=== PATIENT | female | born 1955 | race Caucasian/White ===

== ENCOUNTER 2020-04-01 22:44 | Inpatient (IN) | payer OTHER ==
[~2020-04-01] VITALS: Ht 160 cm; Wt 85.7 kg
--- NOTE | 2020-04-01 22:54 | NUR ---
RUPRETO FROM HOME C/O WEAKNESS/DIZZINESS +NAUSEA TO ER BED 4 AWAITING MD STEWARD
[2020-04-01] MEDS ORDERED: ONDANSETRON HCL/PF 4 MG/2 ML VIAL IV ONE (23:00)
[2020-04-01] MEDS ORDERED: IV NS 0.9% 1,000 ML BAG IV ONE (23:00)
[2020-04-01] MEDS ORDERED: ONDANSETRON HCL/PF 4 MG/2 ML VIAL ONE (23:07)
--- NOTE | 2020-04-01 23:27 | NUR ---
TECH AT BEDSIDE FOR XRAY
--- NOTE | 2020-04-01 23:34 | NUR ---
PT TAKEN TO CT
[2020-04-01 23:45] LABS: BASOPHILS # (AUTO) 0.1 /CMM (0.0-0.2); BASOPHILS % (AUTO) 0.4 % (0.0-2.0); EOSINOPHILS % (AUTO) 1.3 % (0.0-6.0); HEMATOCRIT 44 % (33-45); HEMOGLOBIN 14.1 g/dL (11.5-14.8); LYMPHOCYTES # (AUTO) 3.5 /CMM (0.8-4.8); LYMPHOCYTES % (AUTO) 24.8 % (20.0-44.0); MEAN CORPUSCULAR HGB CONC 32 g/dl (31.0-36.0); MEAN CORPUSCULAR VOLUME 89 fL (82-100); MONOCYTES # (AUTO) 1.3 /CMM (0.1-1.30); MONOCYTES % (AUTO) 9.3 % (2.0-12.0); NEUTROPHILS # (AUTO) 9.1 /CMM (1.8-8.9); NEUTROPHILS % (AUTO) 64.2 % (43.0-81.0); PLATELET COUNT (AUTO) 186 /CMM (150-450); WHITE BLOOD COUNT (AUTO) 14.2 K/uL (4.3-11.0)
[2020-04-02] VITALS (18 sets, daily range): BP systolic 31–194; BP diastolic 15–101
--- NOTE | 2020-04-02 00:16 | NUR ---
SISTER GARRY [phone]
[2020-04-02] MEDS ORDERED: ASPIRIN 325 MG TABLET PO ONE (00:30)
[2020-04-02 00:33] LABS: ALBUMIN 4.1 g/dL (3.4-5.0); BILIRUBIN,DIRECT 0.2 mg/dL (0.0-0.2); BILIRUBIN,TOTAL 0.6 mg/dL (0.2-1.0); CALCIUM, SERUM 9.2 mg/dL (8.5-10.1)
[2020-04-02 00:35] LABS: POTASSIUM 2.8 mmol/L (3.5-5.1)
[2020-04-02 00:54] LABS: APPEARANCE,URINE Slightly Cloudy (CLEAR); BILIRUBIN,URINE Negative (NEGATIVE); BLOOD, URINE Small Ery/uL (NEGATIVE); COLOR,URINE Yellow (YELLOW); KETONES,URINE Negative (NEGATIVE); LEUKOCYTE ESTERASE ,URINE Negative (NEGATIVE); NITRITE, URINE Negative (NEGATIVE); PH,URINE 5.5 (5.0-8.0); PROTEIN,URINE 100 mg/dl (NEGATIVE); UGLUCOSE Negative (NEGATIVE); UROBILINOGEN,URINE 0.2 EU/dL (0.2)
[2020-04-02] MEDS ORDERED: POTASSIUM CL. PREMIX PERIPHER. 50 ML ONE (00:54)
[2020-04-02] MEDS ORDERED: POTASSIUM CHLORIDE 20 MEQ TAB.PRT.SR PO ONE ×2 (00:55→01:00)
[2020-04-02] MEDS ORDERED: ASPIRIN 325 MG TABLET ONE (00:55)
[2020-04-02] MEDS: POTASSIUM CL. PREMIX PERIPHER. 50 ML IV SCH ×4 (01:18→04:44)
--- NOTE | 2020-04-02 01:23 | NUR ---
REPORT GIVEN TO [facility] [employer]AN[employer]
[2020-04-02] MEDS ORDERED: HYDR25TA4 PO (01:26)
[2020-04-02] MEDS ORDERED: LISI-603 PO (01:26)
[2020-04-02] MEDS ORDERED: Z GUARD REMEDY 2 OZ OINT TP PRN (01:30)
[2020-04-02] MEDS ORDERED: ONDANSETRON HCL/PF 4 MG/2 ML VIAL IVP PRN (01:30)
[2020-04-02] MEDS ORDERED: MAGNESIUM HYDROXIDE 30 ML UDC PO PRN (01:30)
[2020-04-02] MEDS ORDERED: MAG HYDROX/AL HYDROX/SIMETH 30 ML UDC PO PRN (01:30)
[2020-04-02] MEDS ORDERED: ACETAMINOPHEN 325 MG TABLET PO PRN (01:30)
[2020-04-02] MEDS ORDERED: POTASSIUM CL. PREMIX PERIPHER. 150 ML ONE (01:36)
--- NOTE | 2020-04-02 02:50 | NUR ---
BUILDING CUSTODIAN NOTES RECEIVED PATIENT TRANSPORTED FROM ER. FIRST BAG OF POTASSIUM CHLORIDE 10 MEQS IV ONGOING. IV ACCESS ON HER LEFT WRIST INTACT AND PATENT. ADMISSION INITIATED. INITIAL PHYSICAL ASSESSMENT DONE, SKIN INTACT. NO SKIN ISSUES AT THIS TIME. BELONGING LESS DONE. NOTED MONEY IN HER PURSE, ACCOUNTED AND PLACED IN SAFE, PATIENT SIGNED AND ACKNOWLEDGED THE BELONGINGS LIST. NOTED 5 BOTTLES OF HOME/ PRESCRIPTION MEDICATIONS. REPOSITIONED FOR COMFORT. ORIENTED TO UNIT AND THE USE OF CALL LIGHT. CONNECTED TO TELE MONITOR, READS SINUS DAMARIS 60s. PATIENT COMPLAINED OF HEADACHE, TYLENOL 650 MG TABLET GIVEN PO PRN ORDER. ALL NEEDS ANTICIPATED, ALERT ORIENTED X3-4, SLIGHTLY WEAK, KEEP RESTED, ASPIRATION PRECAUTION EMPHASIZED. WILL CONTINUE TO MONITOR ACCORDINGLY.
[2020-04-02 06:00] LABS: BACTERIA,URINE Moderate /HPF (None Seen); SQUAMOUS EPITHELIAL CELL,UR Few /HPF (None Seen)
[2020-04-02 06:01] LABS: FINE GRANULAR CASTS,URINE Few /LPF (None Seen)
--- NOTE | 2020-04-02 06:22 | NUR ---
RN NOTES PATIENT'S DAUGHTER SOLOMON CALLED ). INFORMED REGARDING PATIENTS' CURRENT CONDITION, PATIENT IS ALERT ORIENTED X4, ABOUT TO RE INSERT PERIPHERAL IV LINE, CALM RESTING COMFORTABLY, TELE MONITOR READS SINUS RHYTHM 60s -70s. CALL LIGHT WITHIN EASY REACH, BED IN LOW LOCKED POSITIONED. SAFETY MEASURES IN PLACE.
--- NOTE | 2020-04-02 06:40 | NUR ---
rt note rapid response was called to patients room. upon arrival patient was found down on the floor. patient appeared cyanotic placed back on the bed and assessed for pulse. faint pulse observed. left the room to retrieve suction kit. upon return jacques quinonez was called and nurse started cpr. pt placed on non rebreather then bagged pre intubation. dr. person intubates patient then transferred to icu. Addendum: 04/02/20 at 0915 by TAL ALVARENGA RT Amended: Links added.
--- NOTE | 2020-04-02 07:05 | NUR ---
ICU/RN PT IS TRANSFERRED FROM [address] RD FLOOR ,S/P LUMBER SALVAGER AND CODE BLUE.PT IS INTUBATED ON THE VENT .NEW IV INSERTED.PT PLACED ON MONITOR.SINUS RHYTHM ON MONITOR.
--- NOTE | 2020-04-02 07:25 | NUR ---
ICU/RN PT HAS PEA ON MONITOR.CODE BLUE INITIATED.SEE CODE BLUE RECORD.
--- NOTE | 2020-04-02 07:45 | NUR ---
ICU/DENTURE PROCESSOR DOCTOR DR WATT PLACE RIGHT FEMORAL TLC.DR PRINGLE AND DR FERNÁNDEZ AT BED SIDE.PT STARTED ON DOPAMINE DRIP AND LEVOPHED DRIP.IV BOLUS IS INFUSING.ABG ORDERED.
--- NOTE | 2020-04-02 07:46 | NUR ---
RN NOTES AT 0644 PATIENT FOUND ON THE FLOOR ( ROOM 323-2 ) RIGHT SIDE LYING, NOTED WITH BLEEDING ON THE FLOOR. ASSISTED AND PUT BACK TO BED, 0645 CALLED FOR RAPID RESPONSE. NOTED PULSELESS, UNRESPONSIVE, CPR INITIATED, 2 FULL MINUTES CPR DONE, 3WEST CHARGE NURSE AT BEDSIDE JAKY MA RN (CHARGE NURSE), STEVIE RIVERA,RN, ADDIE,RN AND HERMILA COLUNGA, GISSELLE GARCIA RN ( RECORDER ) NANY DERAS/ NANY MARRERO AT BEDSIDE. VITAL SIGNS TAKEN AND RECORDED HR 77 - TELE MONITOR READS 110, BP 114/75, RR 15, SATING 91% BLOOD SUGAR 151MG/DL. RAPID RESPONSE TEAM ARRIVED AT 0650 NURYS CANO RN (ICU NURSE ) DANNA SCALES RN (ER NURSE), RT KEVIN HAYDEN,RT. 0652 TRIAL INTUBATION DONE. 0653 100 SUCCINATE / FLUSH GIVEN 20 ETOMIDATE / FLUSH ADMINISTERED. BILATERAL SOFT WRIST RESTRAINTS APPLIED, PATIENT WAS INTUBATED BY DR. MOI WATT MD AT 0656. 0659 VITAL SIGNS CHECKED HR 101 BP 90/51. 0700 TRANSFERRED TO ICU BED 258. ER DOCTOR MOI WATT REFUSED TO SIGN CODE BLUE RECORD. REPORT GIVEN TO ICU NURSE ARTHUR MONTEMAYOR RN
[2020-04-02] MEDS ORDERED: AMIODARONE 150 MG/3 ML VIAL IV ONE ×2 (07:59→08:44)
[2020-04-02] MEDS ORDERED: DOPamine 400 MG/D5W 250 ML RTU BAG IV ONE (08:00)
[2020-04-02] MEDS ORDERED: NOREPINEPHRINE 8MG/250ML D5W RTU IV ONE (08:00)
[2020-04-02] MEDS ORDERED: AMIODARONE 450 MG in IV D5W 250 ML IV PRN (08:00)
--- NOTE | 2020-04-02 08:25 | NUR ---
ICU/RN AFTER FOURTH CODE BLUE PT PRONOUNCED BY DR PRINGLE.DR FERNÁNDEZ NOTIFIED.
[2020-04-02] MEDS ORDERED: CALCIUM CHLORIDE 1,000 MG/10 ML DISP.SYRIN IV ONE (08:44)
[2020-04-02] MEDS ORDERED: SODIUM BICARBONATE SYR 50 MEQ/50 ML DISP.SYRIN IV ONE (08:44)
[2020-04-02] MEDS ORDERED: FEE EMEERGENCY 1 MIN EA MC ONE (08:44)
[2020-04-02] MEDS ORDERED: EPINEPHRINE (1:10,000) SYRINGE 1 MG/10 ML DISP.SYRIN IVP ONE (08:44)
[2020-04-02] MEDS ORDERED: HYDROCHLOROTHIAZIDE 25 MG TABLET PO SCH (09:00)
[2020-04-02] MEDS ORDERED: ENOXAPARIN SODIUM 40 MG/0.4 ML DISP.SYRIN SQ SCH (09:00)
[2020-04-02] MEDS ORDERED: LISINOPRIL (20MG) 20 MG TABLET PO SCH (09:00)
--- NOTE | 2020-04-02 09:00 | NUR ---
ICU/RN COVID -19 TEST DONE ORDERED.
[2020-04-02] MEDS ORDERED: ETOMIDATE 2 MG/ML VIAL IV ONE (09:24)
[2020-04-02] MEDS ORDERED: SUCCINYLCHOLINE CHLORIDE 20 MG/ML VIAL IV ONE (09:24)
--- NOTE | 2020-04-02 09:30 | NUR ---
ICU/RN COMPUTER TECHNOLOGY TRAINER;S OFFICE CALLED AND TALK TO BIN.THIS IS NOT A CASE.FAMILY NOTIFIED.MD NOTIFIED.
--- NOTE | 2020-04-02 09:35 | NUR ---
ICU/RN ANAND NOTIFIED.CASE NUMBER IS [id number]- DERICK. TALK TO THE FAMILY SISTER KYAW CASTAÑEDA NOTIFIED.FAMILY HAS NO MORTUARY ARRANGEMENT AT THIS TIME.BODY WILL GO TO [facility].
--- NOTE | 2020-04-02 10:10 | NUR ---
RN NOTE Covid test requested by sister, Dr. Brito agreed, specimen sent to lab.
--- NOTE | 2020-04-02 11:11 | NUR ---
ICU/RN ALL BELONGING AND VALUABLES GIVEN TO SISTER GARRY,WITNESS BY NOZZLE TENDER NITESH.
[2020-04-03] MEDS ORDERED: ASPIRIN 81 MG TAB.CHEW PO SCH (09:00)
== END 2020-04-02 08:25 | disposition expired | DRG 190 ==
LOC: ER 22:51 → TELE 04-02 00:48 → ICU 04-02 06:55
PROVIDERS: ADMIT Internal Medicine; ATTEND Internal Medicine
PROC: 0BH18EZ Insertion of Endotracheal Airway into Trachea, Via Natural or Artificial Opening Endoscopic (ICD-10-PCS; principal; 2020-04-02)
PROC: 5A12012 Performance of Cardiac Output, Single, Manual (ICD-10-PCS; principal; 2020-04-02)
PROC: 06HY33Z Insertion of Infusion Device into Lower Vein, Percutaneous Approach (ICD-10-PCS; principal; 2020-04-02)
DX: I21.4 Non-ST elevation (NSTEMI) myocardial infarction (principal); E87.6 Hypokalemia; R40.2362 Coma scale, best motor response, obeys commands, at arrival to emergency department; R40.2142 Coma scale, eyes open, spontaneous, at arrival to emergency department; R40.2252 Coma scale, best verbal response, oriented, at arrival to emergency department; J96.01 Acute respiratory failure with hypoxia; I10 Essential (primary) hypertension; R53.1 Weakness; I46.9 Cardiac arrest, cause unspecified; I31.3 Pericardial effusion (noninflammatory)
CPT/HCPCS: 36415; 70450-TC; 71045-TC; 80048-TC; 80076-TC; 81000-TC; 82962-TC; 84484-TC; 85025-TC; 85730-TC; 87081-TC; 87086-TC; 92950-TC; 93307-TC; A6403; C1751; G0378; J0171; J0282; J0330; J1265; J2405; J3480; J3490; J7030; J7060; U0003-CS